=== PATIENT | male | born 1945 | race Two or more races ===

== ENCOUNTER 2023-06-21 18:59 | Emergency (ER) | payer OTHER ==
[~2023-06-21] VITALS: Ht 182.9 cm; Wt 79.4 kg
[2023-06-21] MEDS ORDERED: CRESTOR20 MG PO (19:18)
[2023-06-21 21:13] LABS: HEMATOCRIT 41.6 % (39.0-48.0); MEAN CELL VOLUME 93.4 fL (80.0-100.00); MEAN CORPUSCULAR HEMOGLOBIN 31.6 pg (27.00-32.0); MEAN CORPUSCULAR HGB CONC 33.8 g/dl (32.0-36.0); PLATELET COUNT 203 K/uL (150-450); RED BLOOD COUNT 4.45 M/uL (4.00-6.00); RED CELL DISTRIBUTION WIDTH 13.9 % (11.5-14.5)
[2023-06-21 21:32] LABS: INR 1.04; PARTIAL THROMBOPLASTIN TIME 29.9 SECONDS (22.0-34.0); PROTHROMBIN TIME 10.9 SECONDS (9.0-11.5)
[2023-06-21 21:37] LABS: ALBUMIN 3.9 gm/dL (3.4-5.0); BILIRUBIN TOTAL 2.02 mg/dL (0.3-1.2); CALCIUM 9.5 mg/dL (8.5-10.1); CREATININE SERUM 1.05 mg/dL (0.70-1.30); GFR 68.86; GLOBULINA 4.1 G/DL (2.4-3.5); POTASSIUM 4.16 mEq/L (3.5-5.1)
[2023-06-21 23:47] LABS: URINE APPEARANCE Turbid; URINE BILIRRUBIN Small (NEGATIVE); URINE BLOOD Moderate; URINE COLOR Dark Yellow; URINE GLUCOSE Negative (NEGATIVE); URINE LEUKOCYTE Moderate; URINE NITRATE Negative
[2023-06-21 23:50] LABS: URINE EPITHELIAL CELLS 39.5 uL (0.0-38.8); URINE RBC 63.1 uL (0.0-20.8)
[2023-06-22 00:24] LABS: URINE MUCUS MODERATE; URINE PROTEIN 100 (NEGATIVE); URINE WBC > 5548.3 uL (0.0-23.2)
== END 2023-06-22 00:59 | disposition home or self-care (01) ==
LOC: ER 18:59
PROVIDERS: General Practice
DX: N30.90 Cystitis, unspecified without hematuria (principal)
CPT/HCPCS: 36415; 74176; 96365; 99284; J0744; J1885

== ENCOUNTER 2023-08-07 09:53 | Outpatient (CLI) | payer OTHER ==
[~2023-08-07 09:53] MED LIST: CRESTOR20 MG PO
== END 2023-08-07 09:55 | disposition home or self-care (01) ==
LOC: RAD 09:53
DX: N20.1 Calculus of ureter (principal)

== ENCOUNTER 2023-08-28 10:46 | Outpatient (CLI) | payer OTHER ==
[2023-08-28 11:24] LABS: URINE APPEARANCE Clear; URINE BILIRRUBIN Negative (NEGATIVE); URINE BLOOD Moderate; URINE COLOR Yellow; URINE GLUCOSE Negative (NEGATIVE); URINE LEUKOCYTE Negative; URINE NITRATE Negative; URINE PROTEIN Negative (NEGATIVE); URINE UROBILINOGEN 0.2 E.U./dl
[2023-08-28 11:25] LABS: URINE BACTERIA 17.6 uL (0.0-1933); URINE EPITHELIAL CELLS 5.8 uL (0.0-38.8); URINE RBC 48.5 uL (0.0-20.8); URINE WBC 7.8 uL (0.0-23.2)
== END 2023-08-28 14:36 | disposition home or self-care (01) ==
LOC: LAB 10:46
DX: N39.0 Urinary tract infection, site not specified (principal)

== ENCOUNTER 2023-09-07 07:33 | Outpatient (CLI) | payer OTHER ==
[2023-09-07 08:36] LABS: URINE APPEARANCE Clear; URINE BILIRRUBIN Negative (NEGATIVE); URINE BLOOD Negative; URINE COLOR Yellow; URINE GLUCOSE Negative (NEGATIVE); URINE LEUKOCYTE Negative; URINE NITRATE Negative; URINE PROTEIN Trace (NEGATIVE); URINE UROBILINOGEN 0.2 E.U./dl
[2023-09-07 08:39] LABS: URINE BACTERIA 328.8 uL (0.0-1933); URINE EPITHELIAL CELLS 8.6 uL (0.0-38.8); URINE RBC 4.4 uL (0.0-20.8); URINE WBC 10.1 uL (0.0-23.2)
[2023-09-07 08:50] LABS: HEMATOCRIT 37.9 % (39.0-48.0); HEMOGLOBIN 12.9 g/dL (13-16.00); MEAN CORPUSCULAR HEMOGLOBIN 31.5 pg (27.00-32.0); MEAN CORPUSCULAR HGB CONC 33.9 g/dl (32.0-36.0); PLATELET COUNT 206 K/uL (150-450); RED BLOOD COUNT 4.08 M/uL (4.00-6.00); RED CELL DISTRIBUTION WIDTH 14.5 % (11.5-14.5)
[2023-09-07 09:10] LABS: CREATININE SERUM 0.91 mg/dL (0.70-1.30); GFR 81.22; POTASSIUM 4.23 mEq/L (3.5-5.1)
[2023-09-07 09:32] LABS: PARTIAL THROMBOPLASTIN TIME 28.8 SECONDS (22.0-34.0); PROTHROMBIN TIME 10.5 SECONDS (9.0-11.5)
== END 2023-09-07 07:37 | disposition home or self-care (01) ==
LOC: LAB 07:33
DX: R31.9 Hematuria, unspecified (principal); N39.0 Urinary tract infection, site not specified

== ENCOUNTER 2023-09-07 08:10 | Outpatient (CLI) | payer OTHER | END 2023-09-07 08:13 | disposition home or self-care (01) | LOC: RAD 08:10 | DX: N20.0 Calculus of kidney (principal) ==

== ENCOUNTER 2023-10-08 10:05 | Outpatient (CLI) | payer OTHER | END 2023-10-08 10:09 | disposition home or self-care (01) | LOC: RAD 10:05 | DX: N20.1 Calculus of ureter (principal) ==

== ENCOUNTER 2024-01-27 07:23 | Outpatient (CLI) | payer OTHER | END 2024-01-27 07:35 | disposition home or self-care (01) | LOC: MRI 07:23 | DX: M25.562 Pain in left knee (principal) | CPT/HCPCS: 73721 ==

== ENCOUNTER 2024-04-27 08:18 | Outpatient (CLI) | payer OTHER | END 2024-04-27 08:24 | disposition home or self-care (01) | LOC: RAD 08:18 | DX: N20.1 Calculus of ureter (principal) ==

== ENCOUNTER 2024-08-19 08:47 | Outpatient (CLI) | payer OTHER | END 2024-08-19 08:51 | disposition home or self-care (01) | LOC: RAD 08:47 | PROVIDERS: ATTEND Orthopaedic Surgery | DX: M25.561 Pain in right knee (principal); M25.562 Pain in left knee ==